=== PATIENT | male | born 1965 | race Caucasian/White ===

== ENCOUNTER 2019-03-26 21:47 | Emergency (ER) | payer OTHER ==
[2019-03-26] MEDS ORDERED: ONDANSETRON 4 MG TAB.RAPDIS PO ONE (22:29)
[2019-03-26] MEDS ORDERED: KETOROLAC TROMETHAMINE 60 MG/2 ML SDV IM ONE (22:29)
--- NOTE | 2019-03-26 22:31 | ER Document Report ---
ED Medical Screen (RME) - General Chief Complaint: Abdominal Pain Stated Complaint: ABDOMINAL PAIN,LOWER BACK PN Time Seen by Provider: 03/26/19 22:24 Mode of Arrival: Ambulatory Information source: Patient Notes: This 53-year-old male presents emergency department with right-sided lower back pain that radiates down to his lower right lower quad. Reports symptoms started about a month ago would last for an hour then go away came back lasted for an hour and then went away. Reports symptoms came tonight will not go away. Reports he feels nauseated but has not vomited feels like he needs to have a bowel movement had a bowel movement earlier this morning. Denies history of kidney stones. Reports only history is asthma when he was a child. No known allergies. Patient reports the pain hurts no matter when he is walking or sitting. Also reports decreased urine output. I have greeted and performed a rapid initial assessment of this patient. A comprehensive ED assessment and evaluation of the patient, analysis of test results and completion of the medical decision making process will be conducted by additional ED providers. Dictation of this chart was performed using voice recognition software; therefore, there may be some unintended grammatical errors. Physical Exam - Vital signs Vitals: Temp Pulse Resp BP Pulse Ox 98.9 F 69 18 181/96 H 96 03/26/19 22:08 03/26/19 22:08 03/26/19 22:08 03/26/19 22:08 03/26/19 22:08 Course - Vital Signs Vital signs: Temp Pulse Resp BP Pulse Ox 98.9 F 69 18 181/96 H 96 03/26/19 22:08 03/26/19 22:08 03/26/19 22:08 03/26/19 22:08 03/26/19 22:08
[2019-03-26 22:43] LABS: ABSOLUTE EOSINOPHILS # (AUTO) 0.1 10^3/uL (0.0-0.6); ABSOLUTE LYMPHOCYTES (AUTO) 1.1 10^3/uL (0.5-4.7); ABSOLUTE NEUT (AUTO) 11.3 10^3/uL (1.7-8.2); BASOPHILS % (AUTO) 0.3 % (0-2); EOSINOPHILS % (AUTO) 0.5 % (0-6); HEMATOCRIT 45.3 % (37.9-51.0); HEMOGLOBIN 15.9 g/dL (13.5-17.0); LYMPHOCYTES % (AUTO) 7.8 % (13-45); MEAN CORPUSCULAR HEMOGLOBIN 33.6 pg (27.0-33.4); MEAN CORPUSCULAR HGB CONC 35.1 g/dL (32.0-36.0); MEAN CORPUSCULAR VOLUME 96 fl (80-97); MONOCYTES % (AUTO) 7.5 % (3-13); PLATELET COUNT 200 10^3/uL (150-450); RED BLOOD COUNT 4.74 10^6/uL (4.35-5.55); RED CELL DISTRIBUTION WIDTH 13.7 % (11.5-14.0); SEGMENTED NEUTROPHILS % (AUTO) 83.9 % (42-78); TOTAL CELLS COUNTED % (AUTO) 100 %; WHITE BLOOD COUNT 13.5 10^3/uL (4.0-10.5)
[2019-03-26 22:53] LABS: APPEARANCE,URINE CLEAR; BILIRUBIN,URINE NEGATIVE (NEGATIVE); COLOR,URINE STRAW; GLUCOSE, URINE NEGATIVE (NEGATIVE); KETONES,URINE NEGATIVE (NEGATIVE); LEUKOCYTE ESTERASE,URINE NEGATIVE (NEGATIVE); NITRITE,URINE NEGATIVE (NEGATIVE); PROTEIN,URINE NEGATIVE (NEGATIVE); URINE SPECIFIC GRAVITY 1.015; UROBILINOGEN,URINE NEGATIVE mg/dL (<2.0)
[2019-03-26 23:06] LABS: ALBUMIN 4.5 g/dL (3.5-5.0); ALKALINE PHOSPHATASE 73 U/L (38-126); ANION GAP 11 (5-19); ASPARTATE AMINO TRANSFERASE 60 U/L (17-59); BILIRUBIN,DIRECT 0.2 mg/dL (0.0-0.4); BILIRUBIN,TOTAL 0.6 mg/dL (0.2-1.3); BLOOD UREA NITROGEN 16 mg/dL (7-20); CALCIUM 9.4 mg/dL (8.4-10.2); CARBON DIOXIDE 27 mmol/L (22-30); CHLORIDE 104 mmol/L (98-107); GLUCOSE 145 mg/dL (75-110); POTASSIUM 4.3 mmol/L (3.6-5.0); TOTAL PROTEIN 8.2 g/dL (6.3-8.2)
--- NOTE | 2019-03-27 00:27 | ER Document Report ---
ED GI/ - General Chief Complaint: Low Back Pain Stated Complaint: ABDOMINAL PAIN,LOWER BACK PN Time Seen by Provider: 03/26/19 22:24 Mode of Arrival: Ambulatory Notes: Patient is a 53-year-old male that comes to the emergency department for chief complaint of sharp pain in the right flank radiating around to the right lower abdomen. He states he has been feeling this for about a week now but today it became much worse and he became nauseated with sharp pain. He states that the pain was really bad until he got a shot of pain medicine (ketorolac) in triage and now symptoms have almost completely resolved. He denies vomiting, fever, dysuria, hematuria, injury. He denies any abdominal surgeries, he states he has had endoscopy and colonoscopy in the past which were normal, he denies any diagnosed medical problems. - Related Data Allergies/Adverse Reactions: No Known Allergies Allergy (Unverified 03/27/19 02:18) Home Medications: lisinopril. synthroid. cardedilol Past Medical History - General Information source: Patient - Social History Smoking Status: Never Smoker Frequency of alcohol use: None Drug Abuse: None Lives with: Family Family History: Reviewed & Not Pertinent Patient has suicidal ideation: No Patient has homicidal ideation: No - Immunizations Immunizations up to date: Yes Hx Diphtheria, Pertussis, Tetanus Vaccination: Yes Review of Systems - Review of Systems Constitutional: No symptoms reported EENT: No symptoms reported Cardiovascular: No symptoms reported Respiratory: No symptoms reported Gastrointestinal: See HPI Genitourinary: See HPI Male Genitourinary: No symptoms reported Musculoskeletal: See HPI Skin: No symptoms reported Hematologic/Lymphatic: No symptoms reported Neurological/Psychological: No symptoms reported Physical Exam - Vital signs Vitals: Temp Pulse Resp BP Pulse Ox 98.9 F 69 18 181/96 H 96 03/26/19 22:08 03/26/19 22:08 03/26/19 22:08 03/26/19 22:08 03/26/19 22:08 - Notes Notes: GENERAL: Alert, interacts well. No acute distress. HEAD: Normocephalic, atraumatic. EYES: Pupils equal, round, and reactive to light. Extraocular movements intact. ENT: Oral mucosa moist, tongue midline. Oropharynx unremarkable. Airway patent. NECK: Full range of motion. Supple. Trachea midline. LUNGS: Clear to auscultation bilaterally, no wheezes, rales, or rhonchi. No respiratory distress. HEART: Regular rate and rhythm. No murmur ABDOMEN: Very mild general right mid to lower abdominal tenderness without guarding. Remaining abdomen benign. GENITOURINARY: Deferred EXTREMITIES: Moves all 4 extremities spontaneously. No edema, normal radial and dorsalis pedis pulses bilaterally. No cyanosis. BACK: No CVA tenderness. No cervical, thoracic, lumbar midline tenderness. No saddle anesthesia, normal distal neurovascular exam. Moves all extremities in full range of motion. NEUROLOGICAL: Alert and oriented x3. Normal speech. Cranial nerves II through XII grossly intact. PSYCH: Normal affect, normal mood. SKIN: Warm, dry, normal turgor. No rashes or lesions noted. Course - Re-evaluation Re-evalutation: Patient reported his symptoms resolved after Toradol from triage. No CVA tenderness, minimal abdominal tenderness, unremarkable vital signs except for hypertension initially. This was repeated and improved but patient will still need to follow-up for this. I discussed this with patient. CBC shows leukocytosis which is nonspecific given patient's presentation. Chemistry unremarkable. Urinalysis unremarkable. CT does show 3 mm right-sided ureterolithiasis at the UVJ with mild hydronephrosis. No concerning findings otherwise. On reevaluation pain is starting to come back mildly but patient still states he is ready to go. He does not appear uncomfortable. He has no fever. I discussed expectations, follow-up, return precautions. Patient states [place] is going out of state and will follow up with urology there if needed. Patient states understanding and agreement with plan. - Vital Signs Vital signs: Temp Pulse Resp BP Pulse Ox 98.2 F 91 16 167/102 H 95 03/27/19 02:40 03/27/19 02:40 03/27/19 02:40 03/27/19 02:40 03/27/19 02:40 - Laboratory Result Diagrams: 03/26/19 22:30 03/26/19 22:30 Laboratory results interpreted by me: 03/26/19 03/26/19 22:30 22:30 WBC 13.5 H MCH 33.6 H Lymph % (Auto) 7.8 L Absolute Neuts (auto) 11.3 H Seg Neutrophils % 83.9 H Creatinine 1.32 H Est GFR (MDRD) Non-Af 57 L Glucose 145 H AST 60 H Discharge - Discharge Clinical Impression: Flank pain, Ureterolithiasis Abdominal pain Qualifiers: Abdominal location: lower abdomen, unspecified Qualified Code(s): R10.30 - Lower abdominal pain, unspecified Condition: Stable Disposition: HOME, SELF-CARE Additional Instructions: You are passing a 3 mm kidney stone in the right side. I do not see any additional kidney stones in your kidneys at this time. This should pass over the next several days, drink plenty fluids, take the prescribed pain medication and nausea medication if needed, you can also take 800 mg of ibuprofen every 8 hours along with this. Your blood pressure was elevated tonight, this can be normal with the pain of the kidney stone, have this rechecked with primary care. Follow-up with urology. Return if you worsen in any way including severe worsening pain, vomiting, fever, or any other concerning or worsening symptoms. Prescriptions: Ibuprofen [Ibu] 800 mg PO TID PRN #30 tablet PRN Reason: Oxycodone HCl/Acetaminophen [Percocet 5-325 mg Tablet] 1 - 2 tab PO TID PRN #12 tablet PRN Reason: Ondansetron [Zofran Odt 4 mg Tablet] 1 - 2 tab PO Q4H PRN #15 tab.rapdis PRN Reason: For Nausea/Vomiting Forms: Elevated Blood Pressure
--- NOTE | 2019-03-27 01:32 | RADIOLOGY REPORT (SQ) ---
EXAM DESCRIPTION: CT ABDOMEN PELVIS WITHOUT IV CONTRAST COMPLETED DATE/TME: 03/27/2019 00:26 CLINICAL HISTORY: 53 years, Male, right flank and abd pain COMPARISON: None. TECHNIQUE: [id number] Images stored on PACS. All CT scanners at this facility use dose modulation, iterative reconstruction, and/or weight based dosing when appropriate to reduce radiation dose to as low as reasonably achievable (ALARA). [facility]: Dose Right [facility]: CareDose [facility]: Dose Right [facility]: Teradose 4D [facility]: [employer] LIMITATIONS: None. FINDINGS: The lung bases show branching densities in the left lower quadrant likely reflecting mucous plug. Osseous structures are grossly intact. Suspected fatty infiltrative change to the liver. The gallbladder is present, contracted. The spleen, adrenal glands, pancreas, left kidney are unremarkable. Moderate right hydroureteronephrosis with surrounding inflammatory change, secondary to an approximately 3 mm distal right ureteral/right UVJ calculus. No gross evidence for bowel obstruction. Appendix not well seen. No pericecal inflammation IMPRESSION: Moderate right hydroureteronephrosis with surrounding inflammation secondary to a 3 mm right UVJ calculus TECHNICAL DOCUMENTATION: Quality ID # [id number]: Final reports with documentation of one or more dose reduction techniques (e.g., Automated exposure control, adjustment of the mA and/or kV according to patient size, use of iterative reconstruction technique) copyright 2011 [employer]- All Rights Reserved
[2019-03-27] MEDS ORDERED: HYDROMORPHONE HCL INJ/PF 2 MG/ML AMPULE IM ONE (02:25)
[2019-03-27] MEDS ORDERED: HYDROCODONE/ACETAMINOPHEN 5-325 MG (6 TAB/ER DISP) PO PRN (02:25)
[2019-03-27] MEDS ORDERED: ONDANSETRON ODT 4 MG TAB (6 TAB/ER DISP) PO PRN (02:26)
[2019-03-27 02:52] VITALS: BP 167/102
== END 2019-03-27 02:51 | disposition home or self-care (01) ==
LOC: ER 21:47
DX: N20.1 Calculus of ureter (principal); M54.5 Low back pain; R10.30 Lower abdominal pain, unspecified; R10.9 Unspecified abdominal pain; R11.0 Nausea
CPT/HCPCS: 99284; 96374; 96375; 36415; 85025; 80053; 81001; 74176; J1885; S0119; J1170